=== PATIENT | male | born 1945 | race Asian ===

== ENCOUNTER 2021-10-22 04:43 | Day surgery (SDC) | payer OTHER ==
[2021-10-20 14:11] VITALS: BMI 50.5
[2021-10-22] MEDS ORDERED: TETRACAINE/BENZOCAINE/BUTAMBEN 20 GM SPR TP ONE (07:31)
[2021-10-22 11:24] VITALS: PULSE 84
[2021-10-22 12:11] VITALS: BP 117/68; TEMP 98
== END 2021-10-22 12:15 | disposition home or self-care (01) ==
LOC: JASU-ENDO 04:43
PROVIDERS: ATTEND Internal Medicine Gastroenterology
PROC: 0DB78ZX Excision of Stomach, Pylorus, Via Natural or Artificial Opening Endoscopic, Diagnostic (ICD-10-PCS; 2021-10-22)
PROC: 0DB38ZX Excision of Lower Esophagus, Via Natural or Artificial Opening Endoscopic, Diagnostic (ICD-10-PCS; 2021-10-22)
PROC: 0DB48ZX Excision of Esophagogastric Junction, Via Natural or Artificial Opening Endoscopic, Diagnostic (ICD-10-PCS; 2021-10-22)
PROC: 0DJD8ZZ Inspection of Lower Intestinal Tract, Via Natural or Artificial Opening Endoscopic (ICD-10-PCS; 2021-10-22)
PROC: 0DB98ZX Excision of Duodenum, Via Natural or Artificial Opening Endoscopic, Diagnostic (ICD-10-PCS; principal; 2021-10-22 10:00)
DX: Z12.11 Encounter for screening for malignant neoplasm of colon (principal); K64.8 Other hemorrhoids; K29.50 Unspecified chronic gastritis without bleeding; K44.9 Diaphragmatic hernia without obstruction or gangrene; K22.2 Esophageal obstruction; I89.0 Lymphedema, not elsewhere classified
CPT/HCPCS: 43239; G0121

== ENCOUNTER 2022-02-02 16:11 | Emergency (ER) | payer OTHER ==
[2022-02-02] MEDS ORDERED: BEBTELOVIMAB (EUA) 175 MG/2 ML VIAL IVPUSH ONE (16:19)
[2022-02-02 16:32] VITALS: BMI 20.9
[2022-02-02 17:21] VITALS: BP 110/70; PULSE 88; TEMP 98.1
[2022-02-02] MEDS ORDERED: LORATADINE 10 MG TABLET PO ONE (17:57)
[2022-02-02] MEDS ORDERED: LORATADINE 10 MG TABLET ONE (18:00)
== END 2022-02-02 18:32 | disposition home or self-care (01) ==
LOC: JCOVINFU 16:11
DX: U07.1 COVID-19 (principal)
CPT/HCPCS: 99283-25; M0222; Q0222